=== PATIENT | female | born 1950 | race Caucasian/White ===

== ENCOUNTER 2022-05-02 07:25 | Observation (INO) | payer MEDICARE ==
[2022-05-02] MEDS ORDERED: ASPIRIN 81 MG PO STA (07:46)
[2022-05-02] MEDS: NITROGLYCERIN SL TABS 0.4 MG TAB SUBLINGUAL STA ×2 (07:56→08:03)
[2022-05-02 08:01] LABS: Basophils # (A) 0.1 k/uL (0-0.2); Basophils % (A) 1 %; Eosinophils # (A) 0.3 k/uL (0-0.7); Eosinophils % (A) 5 %; HCT 38.4 % (34.0-46.0); HGB 13.5 gm/dL (11.4-16.0); Lymphocytes # (A) 1.7 k/uL (1.0-4.8); Lymphocytes % (A) 26 %; MCH 30.7 pg (25.0-35.0); MCHC 35.2 g/dL (31.0-37.0); MCV 87.2 fL (80.0-100.0); Mean Platelet Volume 7.3; Monocytes # (A) 0.4 k/uL (0-1.0); Monocytes % (A) 6 %; Neutrophils % (A) 62 %; Platelet Count 277 k/uL (150-450); RDW 13.1 % (11.5-15.5); WBC 6.5 k/uL (3.8-10.6)
--- NOTE | 2022-05-02 08:09 | ED ---
General Adult HPI - General Chief complaint: Chest Pain Stated complaint: chest pain Time Seen by Provider: 05/02/22 07:35 Source: patient, RN notes reviewed, old records reviewed Mode of arrival: ambulatory Limitations: no limitations - History of Present Illness Initial comments: Patient is a 72-year-old female with past medical history remarkable for hypertension, costochondritis, cholecystectomy presents emergency Department complaining of chest pain. Has had this chest pain previously but states this is more intense. States it is located substernal in nature and is a burning, pressure-like sensation that radiates the right side of her chest and to the right side of her neck. Has intermittent episodes of sharp feeling as well. Denies any fevers, chills, cough. Denies any nausea or vomiting. Denies any abdominal pain. States she did have this pain somewhat yesterday but it resolved on its own. Again she had a when she woke up at 4:30 this morning. Has not improved. Did take her normal antihypertensive medications prior to arrival. Pain is not any worse with movement or palpation. No other acute concerns at this time. No history of MIs or stents. Presents for further evaluation at this time. Denies any other associated symptoms with pain. - Related Data Home Medications Medication Instructions Recorded Confirmed Aspirin EC [Ecotrin Low Dose] 81 mg PO DAILY 05/02/22 05/02/22 Multivitamins, Thera [Multivitamin 1 tab PO DAILY 05/02/22 05/02/22 (formulary)] Omeprazole Magnesium [PriLOSEC OTC] 20 mg PO DAILY 05/02/22 05/02/22 Red Yeast Rice 600 mg PO DAILY 05/02/22 05/02/22 hydroCHLOROthiazide [Hydrodiuril] 25 mg PO DAILY 05/02/22 05/02/22 Allergies Allergy/AdvReac Type Severity Reaction Status Date / Time Cephalosporins Allergy Rash/Hives Verified 05/02/22 08:46 Kcbpuuc-YRR-AvG Reductase Allergy Unknown Verified 05/02/22 08:46 Inhibitor vancomycin Allergy Swelling Verified 05/02/22 08:46 Review of Systems ROS Statement: Those systems with pertinent positive or pertinent negative responses have been documented in the HPI. Review of Systems: CONST: Denies fever EYES: Denies blurry vision ENT: Denies nasal congestion C/V: Endorses chest pain RESP: Denies shortness of breath GI: Denies abdominal pain : Denies dysuria SKIN: Denies rash. MSK: Denies joint pain. NEURO: Denies headache ROS Other: All systems not noted in ROS Statement are negative. Past Medical History Past Medical History: Hypertension History of Any Multi-Drug Resistant Organisms: None Reported Past Surgical History: Cholecystectomy, Hysterectomy, Orthopedic Surgery Additional Past Surgical History / Comment(s): bowel/bladder repair Past Psychological History: No Psychological Hx Reported Smoking Status: Never smoker Past Alcohol Use History: None Reported Past Drug Use History: None Reported General Exam - General Exam Comments Initial Comments: General: Appears in no acute distress. HEAD: Normal with no signs of head trauma. EYES: PERRLA, EOMI, conjunctiva normal, no discharge. ENT: Hearing grossly intact, normal oropharynx. RESPIRATORY: Clear breath sounds bilaterally. No wheezes, rales, or rhonchi. C/V: Regular rate and rhythm. S1 and S2 auscultated, no edema, peripheral pulses 2+ and intact throughout. Chest pain is nonreproducible on palpation. ABD: Abd is soft, nontender, nondistended EXT: Normal range of motion, no obvious deformity SKIN: No rashes or lesions observed on exposed skin. NEURO: Alert and oriented x 4. No focal sensory or strength deficits. Limitations: no limitations Course Vital Signs 05/02/22 05/02/22 05/02/22 07:26 07:42 08:02 Temperature 98 F Pulse Rate 65 60 73 Respiratory 18 18 20 Rate Blood Pressure 207/99 145/88 127/64 O2 Sat by Pulse 97 96 96 Oximetry 05/02/22 08:49 Temperature Pulse Rate 70 Respiratory 18 Rate Blood Pressure 125/72 O2 Sat by Pulse 94 L Oximetry Medical Decision Making - Medical Decision Making Based on the patient's presentation and physical exam, I'm concerned for possible cardiac etiology for her current symptoms. We will obtain a cardiac workup including EKG, troponin, chest x-ray. She is low risk for PE, and therefore we will obtain a screening d-dimer at this time. Vital signs within acceptable limits except for mild hypertension in triage which resulted time she is back in the room. She was in agreement this plan. We will try one nitroglycerin tablet administered an aspirin 325mg. vital signs within acceptable limits at this time. She was in agreement this plan. Following initial nitroglycerin tablet, patient states her pain is improved from a 9 to a 5. We will attempt a second nitroglycerin tablet at this time. EKG shows no signs of acute ischemia.Patient's chest pain resolved with third nitroglycerin tablet. We will start nitro paste. Chest x-ray shows no acute cardiopulmonary process. Laboratory studies are remarkable for a d-dimer within normal limits. Troponin is undetectable. On reevaluation, we did discuss the results. Patient has resolved following nitroglycerin administration. We will start Nitropaste, and I did recommend a heparin drip at this time with concern for possible ACS is her chest pain did resolve with nitro. She was in agreement with this plan. We will admit the patient to the hospital to telemetry bed to monitor troponin levels and have cardiology evaluate the patient. She was in agreement. Vital signs remained within acceptable limits. I spoke with city call admit Dr. López who accepted the patient. Cardiology was consulted. - Lab Data Result diagrams: 05/02/22 07:52 05/02/22 07:52 Lab Results 05/02/22 05/02/22 05/02/22 Range/Units 07:52 07:52 07:52 WBC 6.5 (3.8-10.6) k/uL RBC 4.40 (3.80-5.40) m/uL Hgb 13.5 (11.4-16.0) gm/dL Hct 38.4 (34.0-46.0) % MCV 87.2 (80.0-100.0) fL MCH 30.7 (25.0-35.0) pg MCHC 35.2 (31.0-37.0) g/dL RDW 13.1 (11.5-15.5) % Plt Count 277 (150-450) k/uL MPV 7.3 Neutrophils % 62 % Lymphocytes % 26 % Monocytes % 6 % Eosinophils % 5 % Basophils % 1 % Neutrophils # 4.0 (1.3-7.7) k/uL Lymphocytes # 1.7 (1.0-4.8) k/uL Monocytes # 0.4 (0-1.0) k/uL Eosinophils # 0.3 (0-0.7) k/uL Basophils # 0.1 (0-0.2) k/uL PT 10.8 (9.0-12.0) sec INR 1.0 (<1.2) APTT 24.6 (22.0-30.0) sec D-Dimer 0.34 (<0.60) mg/L FEU Sodium 141 (137-145) mmol/L Potassium 3.8 (3.5-5.1) mmol/L Chloride 103 (98-107) mmol/L Carbon Dioxide 29 (22-30) mmol/L Anion Gap 9 mmol/L BUN 16 (7-17) mg/dL Creatinine 0.70 (0.52-1.04) mg/dL Est GFR (CKD-EPI)AfAm >90 (>60 ml/min/1.73 sqM) Est GFR (CKD-EPI)NonAf 87 (>60 ml/min/1.73 sqM) Glucose 105 H (74-99) mg/dL Calcium 9.0 (8.4-10.2) mg/dL Magnesium 2.0 (1.6-2.3) mg/dL Total Bilirubin 0.7 (0.2-1.3) mg/dL AST 27 (14-36) U/L ALT 21 (4-34) U/L Alkaline Phosphatase 75 (38-126) U/L Troponin I (0.000-0.034) ng/mL Total Protein 7.1 (6.3-8.2) g/dL Albumin 4.3 (3.5-5.0) g/dL Amylase 58 (30-110) U/L Lipase 288 (23-300) U/L 05/02/22 Range/Units 07:52 WBC (3.8-10.6) k/uL RBC (3.80-5.40) m/uL Hgb (11.4-16.0) gm/dL Hct (34.0-46.0) % MCV (80.0-100.0) fL MCH (25.0-35.0) pg MCHC (31.0-37.0) g/dL RDW (11.5-15.5) % Plt Count (150-450) k/uL MPV Neutrophils % % Lymphocytes % % Monocytes % % Eosinophils % % Basophils % % Neutrophils # (1.3-7.7) k/uL Lymphocytes # (1.0-4.8) k/uL Monocytes # (0-1.0) k/uL Eosinophils # (0-0.7) k/uL Basophils # (0-0.2) k/uL PT (9.0-12.0) sec INR (<1.2) APTT (22.0-30.0) sec D-Dimer (<0.60) mg/L FEU Sodium (137-145) mmol/L Potassium (3.5-5.1) mmol/L Chloride (98-107) mmol/L Carbon Dioxide (22-30) mmol/L Anion Gap mmol/L BUN (7-17) mg/dL Creatinine (0.52-1.04) mg/dL Est GFR (CKD-EPI)AfAm (>60 ml/min/1.73 sqM) Est GFR (CKD-EPI)NonAf (>60 ml/min/1.73 sqM) Glucose (74-99) mg/dL Calcium (8.4-10.2) mg/dL Magnesium (1.6-2.3) mg/dL Total Bilirubin (0.2-1.3) mg/dL AST (14-36) U/L ALT (4-34) U/L Alkaline Phosphatase (38-126) U/L Troponin I <0.012 (0.000-0.034) ng/mL Total Protein (6.3-8.2) g/dL Albumin (3.5-5.0) g/dL Amylase (30-110) U/L Lipase (23-300) U/L - EKG Data -: EKG Interpreted by Me EKG Comments: 12-lead Electrocardiogram Interpretation Note EKG was reviewed and interpreted by myself. 12-lead ECG performed at 0742 is interpreted by me as revealing normal sinus rhythm at a rate of 60 beats per minute. [place] is normal. ID interval is 141 ms, QRS duration is 95 ms, QTc is 415 ms.. There were no ST or T wave abnormalities to suggest myocardial ischemia or injury. R wave progression across the precordium was satisfactory. By my interpretation this EKG is non-diagnostic for acute ischemia. Disposition Clinical Impression: Chest pain Disposition: ADMITTED IP TO THIS HOSP Condition: Stable Time of Disposition: 08:25
[2022-05-02] MEDS ORDERED: NITROGLYCERIN SL TABS 0.4 MG TAB SUBLINGUAL STA ×2 (08:10→08:36)
[2022-05-02 08:13] LABS: ALT 21 U/L (4-34); AST 27 U/L (14-36); African American GFR (CKD) >90 (>60 ml/min/1.73 sqM); Albumin 4.3 g/dL (3.5-5.0); Alkaline Phosphatase 75 U/L (38-126); Amylase 58 U/L (30-110); Anion Gap 9 mmol/L; Blood Urea Nitrogen 16 mg/dL (7-17); Carbon Dioxide 29 mmol/L (22-30); Chloride 103 mmol/L (98-107); Glucose 105 mg/dL (74-99); Lipase 288 U/L (23-300); Non-African American GFR(CKD) 87 (>60 ml/min/1.73 sqM); Potassium 3.8 mmol/L (3.5-5.1); Sodium 141 mmol/L (137-145); Total Bilirubin 0.7 mg/dL (0.2-1.3); Total Protein 7.1 g/dL (6.3-8.2)
[2022-05-02 08:17] LABS: Partial Thromboplastin Time 24.6 sec (22.0-30.0); Prothrombin Time 10.8 sec (9.0-12.0)
--- NOTE | 2022-05-02 08:31 | XR ---
EXAMINATION TYPE: XR chest 2V DATE OF EXAM: 05/02/2022 COMPARISON: NONE HISTORY: Chest pain TECHNIQUE: Frontal and lateral views of the chest are obtained. FINDINGS: Patient is rotated. There is no focal air space opacity, pleural effusion, or pneumothorax seen. The cardiac silhouette size is within normal limits. The osseous structures are intact, the re is thoracic spondylosis, right hemidiaphragm is elevated. IMPRESSION: No acute cardiopulmonary process.
[2022-05-02] MEDS ORDERED: HEPARIN SODIUM 1,000 UN/ML (10ML VL) IV ONE (08:35)
[2022-05-02] MEDS ORDERED: HEPARIN SODIUM 1,000 UN/ML (10ML VL) IV PRN (08:35)
[2022-05-02] MEDS ORDERED: NITROGLYCERIN OINT 1 INCH/GM PACKET TOPICAL STA (08:36)
[2022-05-02] MEDS: HEPARIN SOD,PORK IN 0.45% NACL 25,000 UNIT in 0.45% NACL 1 250ML.BAG IV SCH (08:47)
[2022-05-02 10:10] LABS: Appearance,Urine Clear (Clear); Bilirubin,Urine Negative (Negative); Blood,Urine Negative (Negative); Color,Urine Light Yellow; Glucose,Urine (UA) Negative (Negative); Ketones,Urine Negative (Negative); Leukocyte Esterase,Urine Negative (Negative); Nitrite,Urine Negative (Negative); PH, Urine 6.5 (5.0-8.0); Protein,Urine Negative (Negative); Urobilinogen,Urine <2.0 mg/dL (<2.0)
--- NOTE | 2022-05-02 11:16 | P.HPIM ---
History of Present Illness H&P Date: 05/02/22 Chief Complaint: chest pain Patient is a 73-year-old female with past medical history of hypertension presenting with acute chest pain. She claims that her chest pain started this morning when she woke up. Chest pain was to the right of sternum, burning se nsation, radiated to the back and right jaw, 10/10 in intensity. She checked her blood pressure at that moment and her systolic blood pressure was in the 200. Normally her blood pressure is within normal limits. She took her morning dose of hydrochlorothiazide and baby aspirin and decided come to the hospital. While in the ED, patient was given nitroglycerin which improved her pain. She was subsequently given nitroglycerin paste applied to her chest. EKG showed normal sinus rhythm, chest x-ray was normal. Patient's blood pressure improved with nitroglycerin. Lab work was unremarkable, d-dimer negative, lipase negative. Troponin was negative. Patient seen and examined at bedside. Pertinent positives and negatives as discussed in HPI, a complete review of systems was performed and all other systems are negative. Vital signs reviewed General: nontoxic, no distress, appears at stated age Derm: warm, dry Head: atraumatic, normocephalic, symmetric Eyes: EOMI, no lid lag, anicteric sclera, pupils equal round reactive to light ENT: Nose and ears atraumatic Neck: No thyromegaly, trachea midline, supple Mouth: no lip lesion, mucus membranes moist Cardiovascular: S1S2 reg, no murmur, no edema, capillary refill less than 2 seconds Lungs: clear to auscultation bilateral, no rhonchi, no rales, no wheeze, no accessory muscle use Abdominal: soft, nontender to palpation, no guarding, no appreciable organomegaly, normal bowel sounds Ext: no gross muscle atrophy, muscle strength muscle strength 5 out of 5 in all 4 extremities, no contractures Neuro: CN II-XII grossly intact, light touch intact all 4 extremities Psych: Alert, oriented, appropriate affect Assessment/Plan: Acute chest pain -Rule out ACS -Telemetry -Continue to trend troponin -Possible unstable angina given significant improvement with lowering blood pressure as well as nitroglycerin -Currently on heparin drip -Aspirin -Cardiology consult -Echo Hypertension -Continue hydrochlorothiazide Dyslipidemia -Patient intolerant to statins The patient is admitted with an anticipated less than 2 midnight stay for evaluation of chest pain. Surrogate decision-maker: Children CODE STATUS: DNR/DNI DVT prophylaxis: On heparin drip Anticipated discharge date: 05/[address]: Home A total of 47 minutes was spent on the care of this complex patient more than 50% of the time was spent in counseling and care coordination. Past Medical History Past Medical History: Hypertension History of Any Multi-Drug Resistant Organisms: None Reported Past Surgical History: Cholecystectomy, Hysterectomy, Orthopedic Surgery Additional Past Surgical History / Comment(s): bowel/bladder repair Past Psychological History: No Psychological Hx Reported Smoking Status: Never smoker Past Alcohol Use History: None Reported Past Drug Use History: None Reported Medications and Allergies Home Medications Medication Instructions Recorded Confirmed Type Aspirin EC [Ecotrin Low Dose] 81 mg PO DAILY 05/02/22 05/02/22 History Multivitamins, Thera [Multivitamin 1 tab PO DAILY 05/02/22 05/02/22 History (formulary)] Omeprazole Magnesium [PriLOSEC OTC] 20 mg PO DAILY 05/02/22 05/02/22 History Red Yeast Rice 600 mg PO DAILY 05/02/22 05/02/22 History hydroCHLOROthiazide [Hydrodiuril] 25 mg PO DAILY 05/02/22 05/02/22 History Allergies Allergy/AdvReac Type Severity Reaction Status Date / Time Cephalosporins Allergy Rash/Hives Verified 05/02/22 08:46 [id number]-[id number]-ExA Reductase Allergy Unknown Verified 05/02/22 08:46 Inhibitor vancomycin Allergy Swelling Verified 05/02/22 08:46 Physical Exam Vitals: Vital Signs Temp Pulse Resp BP Pulse Ox 05/02/22 11:03 65 20 127/74 96 05/02/22 09:57 60 20 118/68 96 05/02/22 08:49 70 18 125/72 94 L 05/02/22 08:02 73 20 127/64 96 05/02/22 07:42 60 18 145/88 96 05/02/22 07:26 98 F 65 18 207/99 97 Intake and Output 05/01/22 05/02/22 05/02/22 22:59 06:59 14:59 Other: Weight 87.09 kg Results CBC & Chem 7: 05/02/22 07:52 05/02/22 07:52 Labs: Abnormal Lab Results - Last 24 Hours (Table) 05/02/22 Range/Units 07:52 Glucose 105 H (74-99) mg/dL
[2022-05-02] MEDS ORDERED: ACETAMINOPHEN TAB 325 MG TAB PO PRN (12:24)
[2022-05-02 21:45] LABS: Chol/HDL Ratio 4.58 Ratio; LDL Cholesterol,Calculated 136.1 mg/dL (0.0-131.0)
--- NOTE | 2022-05-02 21:46 | CA ---
Transthoracic Echo Report Name: Jenny Schulz Age: 72 Gender: F : 1950 Exam Date: 05/02/2022 13:22 Exam Location: [facility] Ht (in): 65 Wt (lb): 192 Ordering Physician: Bruce López MD Attending/Referring Phys: Damage Inside Adjuster Raissa Marquez RDCS Procedure CPT: Indications: Chest Pain Cardiac Hx: Technical Quality: Good Contrast 1: Total Dose (mL): Contrast 2: Total Dose (mL): MEASUREMENTS (Male / Female) Normal Values 2D ECHO LV Diastolic Diameter PLAX 3.5 cm 4.2 - 5.9 / 3.9 - 5.3 cm LV Systolic Diameter PLAX 2.5 cm IVS Diastolic Thickness 1.0 cm 0.6 - 1.0 / 0.6 - 0.9 cm LVPW Diastolic Thickness 1.0 cm 0.6 - 1.0 / 0.6 - 0.9 cm LV Relative Wall Thickness 0.6 RV Internal Dim ED PLAX 3.1 cm LA Systolic Diameter LX 4.1 cm 3.0 - 4.0 / 2.7 - 3.8 cm LA Volume 46.9 cm??? 18 - 58 / 22 - 52 cm??? M-MODE Aortic Root Diameter MM 2.8 cm MV E Point Septal Separation 0.7 cm AV Cusp Separation MM 2.0 cm DOPPLER AV Peak Velocity 161.2 cm/s AV Peak Gradient 10.4 mmHg MV Area PHT 2.5 cm??? Mitral E Point Velocity 63.8 cm/s Mitral A Point Velocity 94.8 cm/s Mitral E to A Ratio 0.7 MV Deceleration Time 297.9 ms MV E' Velocity 6.8 cm/s Mitral E to MV E' Ratio 9.4 TR Peak Velocity 202.0 cm/s TR Peak Gradient 16.3 mmHg Right Ventricular Systolic Press 20.6 mmHg FINDINGS Left Ventricle Left ventricular ejection fraction is estimated at 60-65 %. Left ventricular cavity size normal. Left ventricular wall thickness normal. Right Ventricle Normal right ventricular size and function. Right ventricular systolic pressure within normal limits. Right Atrium Normal right atrial size. Left Atrium Normal left atrial size. No evidence for an atrial septal defect. Mitral Valve Structurally normal mitral valve. Aortic Valve Trileaflet aortic valve. No aortic valve stenosis or regurgitation. Tricuspid Valve Structurally normal tricuspid valve. Mild tricuspid regurgitation. Pulmonic Valve Structurally normal pulmonic valve. Pericardium Normal pericardium. No pericardial effusion. Aorta Normal size aortic root and proximal ascending aorta. CONCLUSIONS Normal LV size and systolic function Previewed by: Dr. Zachery Low MD (Electronically Signed) Final Date: 02 May 2022 21:45
[2022-05-03 03:26] VITALS: RESP 16; TEMP 97.9
[2022-05-03] MEDS ORDERED: PANTOPRAZOLE 40 MG TABLET PO SCH (07:30)
[2022-05-03] MEDS: HEPARIN SOD,PORK IN 0.45% NACL 25,000 UNIT in 0.45% NACL 1 250ML.BAG IV SCH (08:23)
[2022-05-03 08:39] VITALS: BP 123/69; PULSE 62
[2022-05-03 08:41] LABS: Basophils # (A) 0.03 X 10*3/uL (0.00-0.10); Basophils % (A) 0.5 %; Eosinophils # (A) 0.36 X 10*3/uL (0.04-0.35); Eosinophils % (A) 5.5 %; HCT 36.4 % (37.2-46.3); HGB 12.4 g/dL (12.0-15.0); Immature Grans, Automated 0.2 %; Lymphocytes # (A) 2.56 X 10*3/uL (0.90-5.00); Lymphocytes % (A) 39.4 %; MCH 30.4 pg (27.0-32.0); MCHC 34.1 g/dL (32.0-37.0); MCV 89.2 fL (80.0-97.0); Mean Platelet Volume 9.9 fL (9.5-12.2); Monocytes # (A) 0.42 X 10*3/uL (0.20-1.00); Monocytes % (A) 6.5 %; NRBC Per 100 WBC 0 /100 WBCS (0.0-0.0); Neutrophils # (A) 3.12 X 10*3/uL (1.80-7.70); Neutrophils % (A) 47.9 %; Platelet Count 261 X 10*3/uL (140-440); RBC 4.08 X 10*6/uL (4.10-5.20); RDW 13.1 % (11.5-14.5)
[2022-05-03] MEDS ORDERED: DOBUTamine DRIP for NUC MED 500 MG in DEXTROSE/WATER 1 250ML.BAG IV PRN (08:41)
[2022-05-03 08:56] LABS: Anion Gap 9.5 mmol/L (10.00-18.00); BUN/Creat Ratio 24.43 Ratio (12.00-20.00); Blood Urea Nitrogen 17.1 mg/dL (9.0-27.0); Calcium 9.1 mg/dL (8.7-10.3); Carbon Dioxide 27.5 mmol/L (20.0-27.5); Non-African American GFR(CKD) 87.2 (60.0-200.0); Potassium 3.7 mmol/L (3.5-5.5)
[2022-05-03] MEDS ORDERED: MULTIVITAMINS, THERA 1 EACH TAB PO SCH (09:00)
[2022-05-03] MEDS ORDERED: hydroCHLOROthiazide 25 MG TAB PO SCH (09:00)
[2022-05-03] MEDS ORDERED: ASPIRIN 81 MG PO SCH (09:00)
--- NOTE | 2022-05-03 10:21 | P.CRDCN ---
History of Present Illness History of present illness: HISTORY OF PRESENT ILLNESS: This is a 72-year-old female with a past medical history significant for hypertension and GERD. Patient does not follow with a regulatory specialist. We have been asked to see the patient in consultation for chest pain. Patient examined at the bedside. Yesterday morning, she was awoken from a sleep with chest pain. The pain was on the right side of the chest and radiated into her right shoulder and arm. She describes it as a burning pain and then stabbing. Pain was worse with exertion. The pain persisted until she received nitro. She reported a stabbing chest pain this morning that resolved on its own. * EKG reveals sinus mechanism with no signs of acute ischemia * Chest xray negative for acute process * Laboratory data: WBC 6.5. Hemoglobin 13.5. Platelet count 277. D-dimer 0.34. Sodium 131. Potassium 3.8. BUN 16. Creatinine 0.70. Troponin negative 3. * Current home cardiac medications include aspirin 81 mg daily and hydrochlor othiazide 25 mg daily * Echocardiogram performed revealing normal LV size and systolic function. REVIEW OF SYSTEMS: At the time of my exam: CONSTITUTIONAL: Denies fever or chills. HEENT: Denies blurred vision, vision changes, or eye pain. Denies hemoptysis CARDIOVASCULAR: Denies chest pain. Denies orthopnea. Denies PND. Denies palpitations RESPIRATORY: Denies shortness of breath. GASTROINTESTINAL: Denies abdominal pain. Denies nausea or vomiting. HEMATOLOGIC: Denies bleeding disorders. GENITOURINARY: Denies any blood in urine. SKIN: Denies pruitis. Denies rash. PHYSICAL EXAM: VITAL SIGNS: Reviewed. GENERAL: Well-developed in no acute distress. HEENT: Head is normocephalic. Pupils are equal, round. Sclerae anicteric. Mucous membranes of the mouth are moist. Neck supple. No JVD or thyromegaly LUNGS: Respirations even and unlabored. Lungs essentially clear to auscultation bilaterally. HEART: Regular rate and rhythm. S1 and S2 heard. ABDOMEN: Soft. Nondistended. Nontender. EXTREMITIES: Normal range of motion. No clubbing or cyanosis. Peripheral pulses intact. No lower extremity edema NEUROLOGIC: Awake and alert. Oriented x 3. ASSESSMENT: Chest pain, troponin negative x 3 Hypertension GERD Hyperlipidemia, LDL 136, Intolerance to statins PLAN: Resume home cardiac medications Add Pravachol 10 mg at night Patient to undergo dobutamine stress test today. If negative, she may be discharged home today from a cardiac standpoint Further recommendations pending patient's course Nurse practitioner note has been reviewed by physician. Signing provider agrees with the documented findings, assessment, and plan of care. Past Medical History Past Medical History: Hypertension History of Any Multi-Drug Resistant Organisms: None Reported Past Surgical History: Cholecystectomy, Hysterectomy, Orthopedic Surgery Additional Past Surgical History / Comment(s): bowel/bladder repair Past Psychological History: No Psychological Hx Reported Smoking Status: Never smoker Past Alcohol Use History: None Reported Past Drug Use History: None Reported Medications and Allergies Home Medications Medication Instructions Recorded Confirmed Type Aspirin EC [Ecotrin Low Dose] 81 mg PO DAILY 05/02/22 05/02/22 History Multivitamins, Thera [Multivitamin 1 tab PO DAILY 05/02/22 05/02/22 History (formulary)] Omeprazole Magnesium [PriLOSEC OTC] 20 mg PO DAILY 05/02/22 05/02/22 History Red Yeast Rice 600 mg PO DAILY 05/02/22 05/02/22 History hydroCHLOROthiazide [Hydrodiuril] 25 mg PO DAILY 05/02/22 05/02/22 History Allergies Allergy/AdvReac Type Severity Reaction Status Date / Time Cephalosporins Allergy Rash/Hives Verified 05/02/22 08:46 Cbfaxfj-UZJ-ObK Reductase Allergy Unknown Verified 05/02/22 08:46 Inhibitor vancomycin Allergy Swelling Verified 05/02/22 08:46 Physical Exam Vitals: Vital Signs Temp Pulse Resp BP Pulse Ox 05/02/22 09:57 60 20 118/68 96 05/02/22 08:49 70 18 125/72 94 L 05/02/22 08:02 73 20 127/64 96 05/02/22 07:42 60 18 145/88 96 05/02/22 07:26 98 F 65 18 207/99 97 Intake and Output 05/01/22 05/02/22 05/02/22 22:59 06:59 14:59 Other: Weight 87.09 kg Results 05/03/22 05:24 05/03/22 05:24 Cardiac Enzymes 05/02/22 05/02/22 Range/Units 07:52 07:52 AST 27 (14-36) U/L Troponin I <0.012 (0.000-0.034) ng/mL Coagulation 05/02/22 Range/Units 07:52 PT 10.8 (9.0-12.0) sec APTT 24.6 (22.0-30.0) sec CBC 05/02/22 Range/Units 07:52 WBC 6.5 (3.8-10.6) k/uL RBC 4.40 (3.80-5.40) m/uL Hgb 13.5 (11.4-16.0) gm/dL Hct 38.4 (34.0-46.0) % Plt Count 277 (150-450) k/uL Comprehensive Metabolic Panel 05/02/22 Range/Units 07:52 Sodium 141 (137-145) mmol/L Potassium 3.8 (3.5-5.1) mmol/L Chloride 103 (98-107) mmol/L Carbon Dioxide 29 (22-30) mmol/L BUN 16 (7-17) mg/dL Creatinine 0.70 (0.52-1.04) mg/dL Glucose 105 H (74-99) mg/dL Calcium 9.0 (8.4-10.2) mg/dL AST 27 (14-36) U/L ALT 21 (4-34) U/L Alkaline Phosphatase 75 (38-126) U/L Total Protein 7.1 (6.3-8.2) g/dL Albumin 4.3 (3.5-5.0) g/dL Current Medications Generic Name Dose Route Start Last Admin Trade Name Freq PRN Reason Stop Dose Admin Aspirin 81 mg 05/03/22 09:00 Aspirin 81 Mg PO DAILY [facility] Heparin Sodium (Porcine) 0 unit 05/02/22 08:35 Heparin Sodium 1,000 Un/Ml (10ml Vl) IV PER PROTOCOL PRN Low PTT Protocol Hydrochlorothiazide 25 mg 05/03/22 09:00 Hydrochlorothiazide 25 Mg Tab PO DAILY [facility] Heparin Sodium/Sodium Chloride 250 mls @ 10 mls/hr 05/02/22 08:45 05/02/22 08:47 25,000 unit/ Sodium Chloride IV 11.482 units/kg/hr .Q24H ERNESTINA 10 mls/hr Administration Protocol 11.482 UNITS/KG/HR Pantoprazole Sodium 40 mg 05/03/22 07:30 Pantoprazole 40 Mg Tablet PO AC-BRKFST ERNESTINA Intake and Output 05/01/22 05/02/22 05/02/22 22:59 06:59 14:59 Other: Weight 87.09 kg Patient Weight 05/03/22 06:59 Weight 87.09 kg 05/02/22 07:52 05/02/22 07:52
[2022-05-03 10:25] LABS: INR 1.04 (0.90-1.11); Prothrombin Time 11.7 sec (9.9-11.9)
[2022-05-03] MEDS ORDERED: DOBUTamine DRIP for NUC MED 500 MG/250 ML BAG IV ONE (11:35)
--- NOTE | 2022-05-03 12:55 | CA ---
Dobutamine Stress Echocardiogram Report Jenny Schulz Age: 72 Gender: F : 1950 Exam Date: 05/03/2022 11:19 Exam Location: [facility] Ordering Physician: Fernanda Newman Referring Physician: [id number] Analyst [employer]ochemical Prospecting: LONI Technologist: Ht (in): 65 Wt (lb): 192 Procedure CPT: Indication: CP ICD-9 Codes: Rhythm: Patient History: Chest Pain Cardiac Medications: Medications in past 24 hours: Contrast: Total Dose (mL): Stress Results Protocol: Dobutamine Peak Dose (???g/kg/min): 30 Duration (min:sec): Atropine:(mg) Target HR: 127 Double Product: [id number] Resting HR: 57 Resting BP: 141 / 65 Peak HR: 128 Peak BP: 256 / 75 Max Predicted HR: 149 86 % Max Predicted HR Stress Summary: BP Response: Reason for Termination: Exceeded target heart rate (85% max predicted) Cardiac Symptoms: Chest pain ECG Analysis Resting EKG: Stress EKG: Arrhythmia: Echo Analysis Base Echo Analysis: Low Echo Anaylsis: Peak Echo Analysis: Recovery Echo: MEASUREMENTS (Male/Female) Normal Values CONCLUSIONS No ECG evidence for ischemia No echocardiographic evidence of ischemia Excellent augmentation of overall LV contractility without development of any wall motion abnormalities in a stepwise manner No evidence for ischemia at recovery No arrhythmias Dr. Zachery Low MD (Electronically Signed) Final Date: 03 May 2022 12:54
--- NOTE | 2022-05-03 13:09 | P.DS ---
Providers Date of admission: 05/02/22 08:57 Expected date of discharge: 05/03/22 Attending physician: Calros Callahan MD Primary care physician: Leland Gonzalez Hospital Course: Discharge Diagnosis: Atypical chest pain Hypertension Dyslipidemia Hospital Course: Patient is a 73-year-old female with past medical history of hypertension presenting with acute chest pain. Patient related by cardiology. EKG showed normal sinus rhythm, troponin negative, chest x-ray negative for any acute process. Echo showed normal LV size and systolic function. Stress test was negative. Patient to follow-up with PCP in 1-2 days. Patient seen and examined at bedside. Vital signs reviewed and stable. General: nontoxic, no distress, appears at stated age Derm: warm, dry Head: atraumatic, normocephalic, symmetric Eyes: EOMI, no lid lag, anicteric sclera Mouth: no lip lesion, mucus membranes moist Cardiovascular: S1S2 reg, no murmur Lungs: CTA bilateral, no rhonchi, no rales , no accessory muscle use Abdominal: soft, nontender to palpation, no guarding, no appreciable organomegaly Ext: no gross muscle atrophy, no edema, no contractures Neuro: CN II-XI grossly intact, no focal neuro deficits Psych: Alert, oriented, appropriate affect A total of 39 minutes of time were spent preparing this complex discharge summary. Patient was discharged on 05/03/22 at 12:09. Patient Condition at Discharge: Stable Plan - Discharge Summary New Discharge Prescriptions: New Pravastatin Sodium [Pravachol] 10 mg PO HS #30 tab Continue hydroCHLOROthiazide [Hydrodiuril] 25 mg PO DAILY Red Yeast Rice 600 mg PO DAILY Multivitamins, Thera [Multivitamin (formulary)] 1 tab PO DAILY Omeprazole Magnesium [PriLOSEC OTC] 20 mg PO DAILY Aspirin EC [Ecotrin Low Dose] 81 mg PO DAILY Discharge Medication List Aspirin EC [Ecotrin Low Dose] 81 mg PO DAILY 05/02/22 [History] Multivitamins, Thera [Multivitamin (formulary)] 1 tab PO DAILY 05/02/22 [History] Omeprazole Magnesium [PriLOSEC OTC] 20 mg PO DAILY 05/02/22 [History] Red Yeast Rice 600 mg PO DAILY 05/02/22 [History] hydroCHLOROthiazide [Hydrodiuril] 25 mg PO DAILY 05/02/22 [History] Pravastatin Sodium [Pravachol] 10 mg PO HS #30 tab 05/03/22 [Rx] Follow up Appointment(s)/Referral(s): Leland Gonzalez MD [Primary Care Provider] - 1-2 days Patient Instructions/Handouts: Chest Pain (DC) Activity/Diet/Wound Care/Special Instructions: please see PCP in 1-2 days Discharge Disposition: HOME SELF-CARE
[2022-05-03] MEDS ORDERED: PRAVASTATIN SODIUM 20 MG TAB PO SCH (21:00)
== END 2022-05-03 13:22 | disposition home or self-care (01) ==
LOC: EC 07:25 → 6NMEDSUR 08:57
PROVIDERS: ADMIT Family Medicine; ATTEND Family Medicine
DX: R07.89 Other chest pain (principal); I10 Essential (primary) hypertension; E78.5 Hyperlipidemia, unspecified; K21.9 Gastro-esophageal reflux disease without esophagitis; Z66 Do not resuscitate; Z79.82 Long term (current) use of aspirin; Z79.899 Other long term (current) drug therapy; Z88.1 Allergy status to other antibiotic agents; Z88.8 Allergy status to other drugs, medicaments and biological substances; Z87.39 Personal history of other diseases of the musculoskeletal system and connective tissue; Z90.710 Acquired absence of both cervix and uterus; Z90.49 Acquired absence of other specified parts of digestive tract; Z98.890 Other specified postprocedural states
CPT/HCPCS: 96366 ×3; 96376; 96365; 99285; 36415; 93005; 93306; 93351; 85379; 80061; 80053; 80048; 84443; 82150; 83690; 83735; 84484; 85025 ×2; 85610 ×2; 85730; 81003; 83036; 71046; G0378 ×2; J1250; J1644 ×3